=== PATIENT | male | born 1980 | race Two or more races ===

== ENCOUNTER 2018-10-24 18:08 | Emergency (ER) | payer SELFPAY ==
[~2018-10-24] VITALS: Ht 170.2 cm; Wt 68.0 kg
[2018-10-24 18:17] VITALS: BP 113/69
== END 2018-10-24 21:55 | disposition home or self-care (01) ==
LOC: ER 18:10
DX: L03.115 Cellulitis of right lower limb (principal); F17.210 Nicotine dependence, cigarettes, uncomplicated